=== PATIENT | female | born 1980 ===

== ENCOUNTER 2023-12-23 16:13 | Outpatient (REF) | payer BC, SELFPAY ==
--- NOTE | 2023-12-23 15:45 | ENDO_PTH ---
PATIENT: Yamileth Carolina LOC: [facility] U#:[id number] AGE/SX: 43/F ROOM: RE12/23/[address]: Miriam Lee MD : 1980 BED: DIS: 12/23/2023 SPEC #: [id number] RECD: 12/23/23 17:22 STATUS: JIMBO REWalter #: [id number] NATE: 12/23/23 15:[address]: Miriam Lee DEPT: Surgical Specimen RECD BY: Jeny Woodall ENTERED: 12/23/23 17:22 SP TYPE: Endo OTHR DR: Eve Matta Tissues: 1 - ENDOCERVICAL BX/CURRETTE Procedures: GROSS AND MICRO LEVEL 4 Comments: [id number]
== END 2023-12-23 16:14 | disposition home or self-care (01) ==
LOC: LBN 16:13
PROVIDERS: PCP Nurse Practitioner Family; Visit Provider Obstetrics & Gynecology
DX: Z87.42 Personal history of other diseases of the female genital tract (principal)
CPT/HCPCS: 88305

== ENCOUNTER 2024-01-06 10:05 | Outpatient (REF) | payer BC, SELFPAY ==
--- NOTE | 2024-01-06 09:40 | PAPFT_PTH ---
PATIENT: Yamileth Carolina LOC: [facility] U#:[id number] AGE/SX: 43/F ROOM: RE01/06/[address]: Miriam Lee MD : 1980 BED: DIS: 01/06/2024 SPEC #: [id number] RECD: 01/06/24 13:14 STATUS: JIMBO REWalter #: [id number] NATE: 01/06/24 09:[address]: Miriam Lee DEPT: [facility] Cytology RECD BY: Jeny Woodall ENTERED: 01/06/24 13:14 SP TYPE: PAPFT OTHR DR: Eve Matta Tissues: 1 - CX/ENDOCX FOR PAP SMEARS Procedures: PAP THIN PREP/[facility] Screening HPV DNA PROBE Comments: [id number] (HPV 16 & 18/45)
== END 2024-01-06 10:06 | disposition home or self-care (01) ==
LOC: LBN 10:05
PROVIDERS: PCP Nurse Practitioner Family; Visit Provider Obstetrics & Gynecology
DX: Z01.419 Encounter for gynecological examination (general) (routine) without abnormal findings (principal); Z72.51 High risk heterosexual behavior
CPT/HCPCS: 88142; 87624

== ENCOUNTER 2024-03-04 09:08 | Outpatient (REF) | payer BC, SELFPAY ==
--- NOTE | 2024-03-04 08:45 | ENDO_PTH ---
PATIENT: Yamileth Carolina LOC: [facility] U#:[id number] AGE/SX: 43/F ROOM: RE03/04/[address]: Miriam Lee MD : 1980 BED: DIS: 03/04/2024 SPEC #: [id number] RECD: 03/04/24 12:51 STATUS: JIMBO REWalter #: [id number] NATE: 03/04/24 08:[address]: Miriam Lee DEPT: Surgical Specimen RECD BY: Jeny Woodall ENTERED: 03/04/24 12:53 SP TYPE: Endo OTHR DR: Eve Matta Tissues: 1 - ENDOCERVICAL BX/CURRETTE Procedures: GROSS AND MICRO LEVEL 4 Comments: [id number] (SPECIMEN DID NOT SURVIVE PROCESSING)
== END 2024-03-04 09:09 | disposition home or self-care (01) ==
LOC: LBN 09:08
PROVIDERS: PCP Nurse Practitioner Family; Visit Provider Obstetrics & Gynecology
DX: Z87.42 Personal history of other diseases of the female genital tract (principal); Z12.4 Encounter for screening for malignant neoplasm of cervix
CPT/HCPCS: 88305

== ENCOUNTER 2024-03-22 14:27 | Outpatient (REF) | payer BC, SELFPAY ==
--- NOTE | 2024-03-22 14:15 | ENDO_PTH ---
PATIENT: Yamileth Carolina LOC: [facility] U#:[id number] AGE/SX: 43/F ROOM: RE03/22/[address]: Miriam Lee MD : 1980 BED: DIS: 03/22/2024 SPEC #: [id number] RECD: 03/22/24 16:03 STATUS: JIMBO REWalter #: [id number] NATE: 03/22/24 14:[address]: Miriam Lee DEPT: Surgical Specimen RECD BY: Paula Robles ENTERED: 03/22/24 16:06 SP TYPE: Endo OTHR DR: Eve Matta Tissues: 1 - ENDOCERVICAL BX/CURRETTE Procedures: GROSS AND MICRO LEVEL 4 Comments: [id number]
== END 2024-03-22 14:28 | disposition home or self-care (01) ==
LOC: LBN 14:27
PROVIDERS: PCP Nurse Practitioner Family; Visit Provider Obstetrics & Gynecology
DX: Z87.42 Personal history of other diseases of the female genital tract (principal)
CPT/HCPCS: 88305

== ENCOUNTER 2024-07-21 12:24 | Outpatient (REF) | payer BC, SELFPAY ==
[2024-07-21 17:38] LABS: Abs Immature Grans 0.02 10^3/uL (0.0-0.06); Absolute Basophil Count 0.06 10^3/uL (0.0-0.2); Absolute Eosinophil Count 0.38 10^3/uL (0.0-0.7); Absolute Lymphocyte Count 2.13 10^3/uL (1.2-3.4); Absolute Monocyte Count 0.38 10^3/uL (0.1-0.8); Absolute Neutrophil Count 3.31 10^3/uL (1.2-6.7); Eosinophils % 6.1 %; HCT 45.6 % (36.0-46.0); HGB 15.1 g/dL (11.2-15.7); Immature Grans % 0.3 %; Lymphocytes % 33.9 %; MCH 30.9 pg (27.0-33.0); MCHC 33.1 % (32.0-36.0); MCV 93 fL (80-95); MPV 10.8 fL (8.0-11.0); Monocytes % 6.1 %; Neutrophils % 52.6 %; Platelet Count 267 10^3/uL (130-400); RBC 4.88 10^6/uL (3.93-5.22); RDW 12.1 % (11.7-14.6); WBC 6.28 10^3/uL (4.4-10.8)
[2024-07-21 18:06] LABS: Hemoglobin A1C 5.4 % (<5.7)
[2024-07-21 18:59] LABS: ALT 22 U/L (14-59); AST 25 U/L (15-37); Albumin 4.3 g/dL (3.4-5.0); Alkaline Phosphatase 53 U/L (46-116); Anion Gap 8.5 mmol/L (3-11); BUN 12 mg/dL (7-18); Bilirubin, Total 0.46 mg/dL (0.2-1.0); CO2 28.5 mmol/L (21.0-32.0); CREATININE 0.9 mg/dL (0.55-1.02); Calcium 9.5 mg/dL (8.5-10.1); Calculated LDL 99 mg/dL (<100); Chloride 103 mmol/L (98-107); Cholesterol 167 mg/dL (<200); Estimated GFR 81.35 (mL/min/1.73m2); Glucose 98 mg/dL (74-106); HDL Cholesterol 54 mg/dL (40-60); Potassium 3.8 mmol/L (3.5-5.1); Sodium 140 mmol/L (136-145); TSH (W/Ref FT4) 1.98 uIU/mL (0.36-3.74); Total Protein 8.1 g/dL (6.4-8.2); Triglyceride 72 mg/dL (<150); Vitamin D 25 Total 26.6 ng/mL (30-100)
== END 2024-07-21 12:25 | disposition home or self-care (01) ==
LOC: NCHCN 12:24
PROVIDERS: PCP Nurse Practitioner Family; Visit Provider Nurse Practitioner Family
DX: Z00.00 Encounter for general adult medical examination without abnormal findings (principal)
CPT/HCPCS: 80053; 80061; 82306; 83036; 84443; 85025

== ENCOUNTER 2024-08-01 02:27 | Outpatient (CLI) | payer BC, SELFPAY ==
--- NOTE | 2024-08-01 11:00 | DI.MAMMO_ITS ---
Exam(s) MG MAMMO SCREENING 60 MIN DUR EXAM: MG MAMMO SCREENING 60 MIN DUR CLINICAL HISTORY: SCREENING, Z12.39 TECHNIQUE: Mammograms were interpreted according to the usual protocol including computer analysis w [employer] CAD system, tomosynthesis and C-view imaging. COMPARISON: None. Baseline examination FINDINGS: Bilateral breast implants appear intact. The breasts are composed of heterogeneously dense fibroglandular densities, Breast Density category C . No suspicious masses or suspicious microcalcifications are seen. No skin thickening or abnormal axillary lymph nodes are seen. IMPRESSION: BI-RADS Category 1, Negative mammogram. Yearly screening mammography is recommended. Breast Density Category C, heterogeneously Dense. The mammogram demonstrates the patient's breast tissue is dense. Dense breast tissue is very common a nd is not abnormal but dense breast tissue can make it harder to find cancer on a mammogram. Also, de nse breast tissue may increase breast cancer risk. This information about the result of the mammogram report was provided to the patient to raise their awareness. Use this report when you speak with the patient about their risks for breast cancer, which includes their family history. At that time, you may recommend additional screening tests (Ultrasound or MRI) as they might be useful based on their r isk. A negative radiographic report should not delay biopsy if a dominant or clinically suspicious mass is present. Up to ten percent of cancers are not identified on mammography. A negative report may reinforce clinical impression. Adenosis and dense breasts may obscure an underlying neoplasm. False positive reports average 6 to 10%.
== END 2024-08-01 02:47 ==
LOC: DI 02:28
PROVIDERS: PCP Nurse Practitioner Family; Visit Provider Nurse Practitioner Family
DX: Z12.31 Encounter for screening mammogram for malignant neoplasm of breast (principal)
CPT/HCPCS: 77063; 77067

== ENCOUNTER 2025-04-06 12:29 | Outpatient (REF) | payer BC, SELFPAY ==
--- NOTE | 2025-04-06 11:00 | PAPFT_PTH ---
PATIENT: Yamileth Carolina LOC: [facility] U#:[id number] AGE/SX: 44/F ROOM: RE04/06/[address]: Miriam Lee MD : 1980 BED: DIS: 04/06/2025 SPEC #: [id number] RECD: 04/06/25 13:09 STATUS: JIMBO REWalter #: [id number] NATE: 04/06/25 11:[address]: Miriam Lee DEPT: [facility] Cytology RECD BY: Jeny Woodall ENTERED: 04/06/25 13:10 SP TYPE: PAPFT OTHR DR: Eve Matta Tissues: 1 - CX/ENDOCX FOR PAP SMEARS Procedures: PAP THIN PREP/[facility] Screening HPV DNA PROBE Comments: [id number] (HPV 16 & 18/45)
== END 2025-04-06 12:30 | disposition home or self-care (01) ==
LOC: LBN 12:29
PROVIDERS: PCP Nurse Practitioner Family; Visit Provider Obstetrics & Gynecology
DX: Z12.4 Encounter for screening for malignant neoplasm of cervix (principal); N76.0 Acute vaginitis
CPT/HCPCS: 88142; 87624

== ENCOUNTER 2025-08-02 03:27 | Outpatient (CLI) | payer BC, SELFPAY ==
--- NOTE | 2025-08-02 10:51 | DI.MAMMO_ITS ---
Exam(s) MG MAMMO SCREENING 60 MIN DUR EXAM: MG MAMMO SCREENING 60 MIN DUR CLINICAL HISTORY: breast cancer screening,implants,z12.39 TECHNIQUE: Mammograms were interpreted according to the usual protocol including computer analysis with CAD system, tomosynthesis and C-view imaging. Implant displaced views were performed in addition to the routine views. COMPARISON: 2023 FINDINGS: The breasts are composed of heterogeneously dense fibroglandular densities, Breast Density category C. Bilateral breast implants appear intact. No suspicious masses or suspicious microcalcifications are seen. No skin thickening or abnormal axillary lymph nodes are seen. There has been no significant change from prior exams. IMPRESSION: BI-RADS Category 1, Negative mammogram. Yearly screening mammography is recommended. Breast Density: Category C - The breasts are heterogeneously dense, which may obscure small masses. Breast density Category C or D implies that the patient has dense breast tissue. Dense breast tissue can make it harder to find cancer on a mammogram. Dense breast tissue is also associated with an increased risk of breast cancer. This information about the result of the mammogram report was provided to the patient to raise their awareness. Use this report when you speak with the patient about their risks for breast cancer, which includes their family history. At that time, you may recommend additional screening tests (Ultrasound or MRI) as these tests may add significant information. A negative radiographic report should not delay biopsy if a dominant or clinically suspicious mass is present. Up to ten percent of cancers are not identified on mammography. A negative report may reinforce clinical impression. Adenosis and dense breasts may obscure an underlying neoplasm. False positive reports average 6 to 10%.
== END 2025-08-02 03:47 ==
LOC: DI 03:27
PROVIDERS: PCP Nurse Practitioner Family; Visit Provider Obstetrics & Gynecology
DX: Z12.31 Encounter for screening mammogram for malignant neoplasm of breast (principal); R92.323 Mammographic fibroglandular density, bilateral breasts
CPT/HCPCS: 77063; 77067